=== PATIENT | male | born 1960 | race Caucasian/White ===

== ENCOUNTER 2017-01-11 06:27 | Day surgery (SDC) | payer OTHER ==
[2017-01-11] VITALS (13 sets, daily range): BP systolic 127–183; BP diastolic 70–96; PULSE 45–78; RESP 10–18; O2SAT 94–100
[~2017-01-11] VITALS: Ht 170.2 cm; Wt 68.8 kg
[~2017-01-11 06:27] MED LIST: CeFAZolin 2 Gm/50 mL D5W IV Premix IV ONE; IBUP1TAB56 PO; LISI10TA PO; MORP15TA PO; NPR500T PO; OXYC1TAB24 PO; TAMS0.4C98 PO; TERA10CA5 PO
[2017-01-11] MEDS ORDERED: fentaNYL-PF 50 mCg/mL 2 mL Inj ONE (06:28)
[2017-01-11] MEDS ORDERED: Dexamethasone 4 mg/mL Inj ONE (06:28)
[2017-01-11] MEDS ORDERED: Lidocaine PF 1% 30 mL Inj ONE (06:28)
[2017-01-11] MEDS ORDERED: Ondansetron 2 mg/mL 2 mL Inj ONE (06:28)
[2017-01-11] MEDS ORDERED: Propofol 10,000 mCg/mL 20 mL Inj ONE (06:28)
[2017-01-11] MEDS ORDERED: CeFAZolin Inj 2 gm / 50mL D5W IV ONE (06:54)
[2017-01-11] MEDS: Lactated Ringer's 1,000 ML IV SCH ×2 (07:16→08:43)
--- NOTE | 2017-01-11 07:54 | PCM.HPANE ---
Patient Data Surgeon Admitting Provider: Attending Provider:Gema Riggs MD Primary Care Physician:Jack Other Provider:Humble Crum Anesthesia Reason for Visit Right Kidney Stone Ht/WT & BMI Height (Feet): 5 Height (Inches): 7.00 Weight (Kilograms): 68.800 Body Mass Index 23.00 Allergies Coded Allergies: No Known Allergies (Verified , 01/29/08) Past Anesthesia History Anesthesia History: Denies:: Abnormal Airway, Anesthesia Reactions, Difficult Intubation, Fam Anesthesia Reaction Diabetes History Hx Diabetes?: No MRSA MRSA: No Medications Hypertension Medication: No Home Meds Incl Beta Elaian: No Reported Medications oxyCODONE-Acetaminophen 5-325 mg 1 Each Tablet1-2 Tab PO Q4H PRN For Pain Ref 0 01/09/17 Lisinopril 10 Mg [id number] Mg PO DAILY 30 Days Ref 0 01/09/17 Tamsulosin (Flomax)0.4 Mg Capsule0.4 Mg PO DAILY Ref 0 01/09/17 Discontinued Reported Medications Terazosin 10 Mg [id number] Mg PO HS Ref 0 01/09/17 Naproxen 500 Mg [id number] Mg PO BID PRN For Pain Ref 0 01/09/17 Ibuprofen/Diphenhydramine Cit (Motrin Pm Caplet)1 Each Tablet1 Each PO Q6H PRN For Pain 01/09/17 Morphine Sulfate 15 Mg [id number] Mg PO PRN For Pain 01/09/17 Naproxen Sodium-Expunged Drug, Do Not Renew! 220 Mg [id number] Mg PO PRN Every 6 hours as needed/ Will stop 5-7 Days Prior to Surgery 04/12/10 [alfuzosin] No Conflict Check10 Mg PO AM 04/12/10 Morphine-Expunged Drug, Do Not Renew! (Morphine IR-Expunged Drug, Do Not Renew!) 15 Mg [id number] Mg PO PRN BID 04/12/10 Lisinopril-Expunged Drug, Do Not Renew! 10 Mg [id number] Mg PO AM Hold AM of Surgery 04/12/10 History HEENT History: Positive for:: Hearing Problem Sinus Problem (related to smoking) Denies:: Abnormal Airway Cataracts Difficult Intubation Dysphagia Glaucoma TMJ Teeth Condition: Missing Teeth Hx of Heart Problems?: Yes Cardiovascular History: Positive for:: Hypertension Denies:: AICD Abdominal Aortic Aneurism Atrial Fibrillation Congestive Heart Failure Edema Heart Murmur Irregular Heartbeat Pacemaker Peripheral Vascular Rheumatic Fever Hx of Respiratory Problem?: Yes Respiratory History: Positive for:: Dyspnea Denies:: Asthma COPD Emphysema Oxygen Administration Pneumonia Tuberculosis Use of C-PAP Machine (snores, no sleep study) Use of Inhalers / NEBS Hx Neurologic Problems?: Yes Neurological History: Positive for:: Headaches (related to vision and flourescent lights, eye strain) Denies:: Alzheimer's Disease CVA Dementia Dizziness Multiple Sclerosis Parkinson's Disease Seizures TIA Hx of GI Problems?: No Gastrointestinal History: Denies:: Cirrhosis Diverticulitis Gall Bladder Disease Gastroesphageal Reflux Gastrointestinal Bleeding Heartburn Hepatitis Hiatal Hernia Liver Disease Rectal Bleeding Hx of Problems?: Yes Genitourinary History: Positive for:: Kidney Stones (right kidney stone current) Denies:: Urinary Tract Infection Other Pertinent History: prior hx of 3 kidney stones, lithotripsy- last 2009. usually passes 2-3 stones year Male Hx: Positive for:: Prostate Problems (enlarged prostate) Denies:: Scrotal Mass Testicular Surgery Skin History: Denies:: History Skin Disorders? Pressure Ulcers Hx Musculoskeletal Problems?: Yes Musculoskeletal History: Positive for:: Osteoarthritis (due to age) Denies:: Back Injury Fibromyalgia Joint Replacement Musculoskeletal Trauma Myasthenia Gravis Hx of Psycho/Social Problems?: No Psycho Social History: Denies:: Anxiety Hx Depression Hx Surgeries?: Yes (benign mass side of face, multiple kidney stones ) Hx Any Other Health Problems?: Yes Other History: Denies:: Cancer Thyroid Disease History Blood Transfusions: Positive for:: Accept Blood Products? Denies:: Blood Transfusions Hx Diabetes: No Hx Alcohol Use: YesAlcoholic Drinks Per Day: one drink every 3-4monthsHx Substance Use: NoHave You Smoked inLast 12 mo: Yes (1 and half pack day) Stop/Bang S-Snoring: Do You Snore Loudly: No T-Tired: feel tired, fatigued: No O-Obsered: Observed not breath: No P-Blood Pressure: treated: Yes B- Body Mass Index > 35 kg/m2: No A- Age over 50: Yes N- Neck Large Circumference: No G- Gender Male: Yes KEVIN Total Score: 3 KEVIN Risk Assessment: Low Risk, <3 Yes Risk Assessment Category Category 1A: Patient has history of documented sleep apnea, and HAS NOT received any narcotic, sedative or anesthesia administration during this stay. Category 1B: Patient has history of documented sleep apnea, and HAS received any narcotic , sedative or anesthesia administration during this stay Category 2: Patient has SUSPECTED Obstructive Sleep Apnea, and HAS received any narcotic , sedative or anesthesia administration during this stay. Category 3: Patient has SUSPECTED Obstructive Sleep Apnea and HAS NOT received narcotic, sedative or anesthesia administration during this stay. Category 4: Outpatient in Procedural Areas with known sleep apnea or who screen positive for High Risk via the STOP/BANG questionnaire. Exam Exam Vital Signs Vital Signs Date Time Temp Pulse Resp B/P Pulse Ox O2 Delivery O2 Flow Rate FiO2 01/11/17 06:55 36 72 14 134/96 98 Room Air General Appearance: Alert, Oriented X3, Cooperative, No Acute Distress HEENT/AIRWAY: MP 3, Neck Movement (FROM) Lungs: Normal Air Movement Heart: Exam Unremarkable Meds/Labs/Diagnostics Admission Meds Current Medications Lactated Ringer's (Lr) 1,000 ml @ 120 mls/hr Q8H20M IV Last administered on t 07:16; Start 01/11/17 at 05:00; Stop 01/11/17 at 13:19 Plan Impression Patient chart reviewed, patient interviewed and anesthestic plan with risks, benefits, and alternatives discussed, and informed consent obtained. NPO Status: 0600 ASA Physical Status: ASA2 Mod Systemic Disease (tobacco use) Anesthetic Plan: GA Bene/Risks/Altern/Consents: Yes HP Complete Prior to Induction: Yes Ellis Mansfield MD Jan 11, 2017 07:53
[2017-01-11] MEDS ORDERED: Belladonna Alk-Opium 60 mg Rectal Suppository RECTAL ONE ×2 (08:14→10:00)
[2017-01-11] MEDS ORDERED: Lactated Ringer's 1,000 ML IV SCH (08:39)
[2017-01-11] MEDS ORDERED: Lactated Ringer's 500 ML IV PRN (08:39)
[2017-01-11] MEDS ORDERED: Ondansetron 2 mg/mL 2 mL Inj IVPUSH PRN (08:40)
[2017-01-11] MEDS ORDERED: EPHEDrine Sulfate 50 mg/mL Inj IVPUSH PRN (08:40)
[2017-01-11] MEDS ORDERED: Dexamethasone 4 mg/mL Inj IVPUSH PRN (08:40)
[2017-01-11] MEDS ORDERED: Phenylephrine 10,000 mCg/mL Inj IVPUSH PRN (08:40)
[2017-01-11] MEDS ORDERED: MetoCLOpramide 5 mg/mL 2 mL Inj IVPUSH PRN (08:40)
[2017-01-11] MEDS ORDERED: oxyCODONE-Acetamin 5-325 mg Tablet PO PRN (09:15)
[2017-01-11] MEDS: HYDROmorphone 1 mg/mL Inj IVPUSH PRN ×3 (09:17→10:31)
--- NOTE | 2017-01-11 09:23 | PCM.ANEP2 ---
Post Anesthesia Evaluation ASA/CMS Post Anesthesia VS in Patient's Normal Range?: Yes Resp Stable; Airway Patent?: Yes CV Function & Hydration Stable: Yes Mental Status Recovered?: Yes Pain control Satisfactory?: Yes N/V Control Satisfactory?: Yes Ellis Mansfield MD Jan 11, 2017 09:23
--- NOTE | 2017-01-11 09:23 | PCM.ANEP1 ---
Post Anesthesia Phase 1 PACU Phase 1 Assessment Vital Signs see anesthesia record Vital Signs Date Time Temp Pulse Resp B/P Pulse Ox O2 Delivery O2 Flow Rate FiO2 01/11/17 06:55 36 72 14 134/96 98 Room Air Anesthetic Administered: GA Level of Alertness: Drowsy, not talking Pain: No Nausea or Vomiting: No Airway Device: Oralpharangeal Airway Oxygen Delivery: Simple Mask Lungs: Normal Air Movement Ellis Mansfield MD Jan 11, 2017 09:23
[2017-01-11] MEDS: fentaNYL-PF 50 mCg/mL 2 mL Inj IVPUSH PRN ×2 (09:32→09:48)
--- NOTE | 2017-01-11 10:08 | OP ---
[address] [address] OPERATIVE REPORT PATIENT: NGHIA MAHONEY : 1960 MR#: [id number] ADMIT: 01/11/2017 JOB ID: [id number] DATE OF SURGERY: 01/11/2017 SURGEON: Gema Riggs MD. PREOPERATIVE DIAGNOSIS(ES): Right ureteral calculus. POSTOPERATIVE DIAGNOSIS(ES): Right ureteral calculus. PROCEDURE: 1. Cystoscopy. 2. Ureteroscopy. 3. Laser lithotripsy. 4. Stone basketing. 5. Stent. ANESTHESIA: General anesthetic, Dr. Mansfield. DESCRIPTION OF PROCEDURE: Under a general anesthetic, the patient was placed in the lithotomy position. Genitalia prepped and draped in a sterile manner. A 22-Malawian cystoscope was introduced through a normal urethra. A 0.035 Glidewire was advanced to the level of the right renal pelvis. Over this, a 15-Malawian balloon dilation catheter was used to dilate the distal ureter. A 7-Malawian semi-rigid ureteroscope was then passed alongside the wire. The intramural ureter was bleeding slightly from the dilation. The ureter just outside the bladder showed some scar tissue and at this location, the stone was seen. Using a 350 micron fiber and the holmium laser, the stone was fragmented. A Nitinol tipless basket was then used to remove multiple fragments. The ureter was then inspected and found to be free of further calculi. A 6-Malawian 24-cm double-J stent was then passed over the wire. When it was confirmed to be in good position, the wire was withdrawn. The patient tolerated procedure well, left the operating room in good condition. A B and O suppository was given for postoperative analgesia.
[2017-01-11] MEDS ORDERED: Belladonna Alk-Opium 60 mg Rectal Suppository RECTAL SCH (20:30)
[2017-01-19 09:10] LABS: Stone Color Brown (.)
== END 2017-01-11 23:59 | disposition home or self-care (01) ==
LOC: SAS 06:27
PROVIDERS: ATTEND Urology
DX: N20.1 Calculus of ureter (principal); N40.1 Benign prostatic hyperplasia with lower urinary tract symptoms; R35.0 Frequency of micturition; R33.9 Retention of urine, unspecified; R39.198 Other difficulties with micturition
CPT/HCPCS: 52356; 76000; 82360; C2617; J0690; J1100; J1170; J1885; J2175; J2250; J2270; J2405; J3010; J7120